=== PATIENT | female | born 1985 | race Caucasian/White ===

== ENCOUNTER 2020-09-21 21:57 | Emergency (ER) | payer OTHER ==
[~2020-09-21] VITALS: Ht 149.9 cm; Wt 65.8 kg
[2020-09-21 22:12] VITALS: Ht 149.9 cm; Wt 65.8 kg
[2020-09-22 00:02] VITALS: BP 121/74
== END 2020-09-22 00:02 | disposition home or self-care (01) ==
LOC: ED 21:57
DX: M54.5 Low back pain (principal); W17.89XA Other fall from one level to another, initial encounter; Y93.89 Activity, other specified; Y92.89 Other specified places as the place of occurrence of the external cause; Y99.8 Other external cause status